=== PATIENT | female | born 1990 | race Caucasian/White ===

== ENCOUNTER 2019-03-02 19:51 | Emergency (ER) | payer OTHER, BC ==
--- NOTE | 2019-03-02 20:51 | RADIOLOGY REPORT (SQ) ---
CT BRAIN AND FACIAL BONES EXAM DATE: 03/02/2019 7:57 PM [employer]MER HISTORY: Trauma. COMPARISON: None. TECHNIQUE: CT scan of the brain and facial bones without IV contrast. This exam was performed according to our departmental dose-optimization program, which includes automated exposure control, adjustment of the mA and/or kV according to patient size and/or use of iterative reconstruction technique. FINDINGS: BRAIN: The ventricles, cisterns, and sulci are age-appropriate. No evidence of acute infarction, intracranial hemorrhage, extra-axial fluid collection, or midline shift. No depressed skull fracture. FACIAL BONES: No acute facial bone fracture is seen. No air-fluid levels are seen in the paranasal sinuses. The mastoid air cells are clear. No retrobulbar mass or hematoma is identified. IMPRESSION: 1. No acute intracranial hemorrhage. 2. No acute facial bone fracture.
--- NOTE | 2019-03-02 20:51 | RADIOLOGY REPORT (SQ) ---
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 COMPARISON: None. TECHNIQUE: CT scan of the brain and facial bones without IV contrast. This exam was performed according to our departmental dose-optimization program, which includes automated exposure control, adjustment of the mA and/or kV according to patient size and/or use of iterative reconstruction technique. FINDINGS: BRAIN: The ventricles, cisterns, and sulci are age-appropriate. No evidence of acute infarction, intracranial hemorrhage, extra-axial fluid collection, or midline shift. No depressed skull fracture. FACIAL BONES: No acute facial bone fracture is seen. No air-fluid levels are seen in the paranasal sinuses. The mastoid air cells are clear. No retrobulbar mass or hematoma is identified. IMPRESSION: 1. No acute intracranial hemorrhage. 2. No acute facial bone fracture.
[2019-03-02] MEDS ORDERED: TETRACAINE HCL 0.5% OPH SOLN 4 ML OD ONE (20:56)
[2019-03-02] MEDS ORDERED: IBUPROFEN 400 MG TABLET PO ONE (20:56)
[2019-03-02] MEDS ORDERED: DIPH/PERTUSS(ACELL)/TETANUS VAC/PF 0.5 ML SYR (>=10YO) IM ONE (20:56)
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
[2019-03-02] MEDS ORDERED: TETRACAINE HCL 0.5% OPH SOLN 4 ML ONE (23:51)
[2019-03-03] MEDS ORDERED: ERYTHROMYCIN 0.5% OPH OINT 1 GM UNIT DOSE OD ONE (00:44)
--- NOTE | 2019-03-03 01:02 | ER Document Report ---
ED Eye Complaint - General Chief Complaint: Eye Problem Stated Complaint: EYE/FACE INJURY Time Seen by Provider: 03/02/19 20:52 Primary Care Provider: SABINE MENARD NP [NURSE PRACTITIONER] - Follow up as needed Mode of Arrival: Wheelchair Information source: Patient Notes: Ms. Mckeon is 28 yo f w/ no significant medical history presenting to the ED for right eye pain. Patient states that she was ambulating when she accidentally struck her face and eye on a 2 x 4 piece of wood. She denies any LOC, vomiting or dizziness. She initially was able to see just fine however later endorse some mild blurry vision. Upon my evaluation, nursing staff had already performed visual acuity testing and it was 20/20. Patient has normal R OM of bilateral eyes. She was given a tetanus IM injection at triage as she was unsure when her last immunization was. There is a superficial laceration/abrasion no swelling underneath the right eye. She does endorse a foreign body sensation. Patient states that her vision has since improved and returned back to normal. - Related Data Allergies/Adverse Reactions: No Known Allergies Allergy (Unverified 07/01/10 00:02) Past Medical History - General Information source: Patient - Social History Smoking Status: Never Smoker Chew tobacco use (# tins/day): No Frequency of alcohol use: Occasional Drug Abuse: None Family History: Reviewed & Not Pertinent Patient has suicidal ideation: No Patient has homicidal ideation: No Skin Medical History: Denies Hx MRSA Review of Systems - Review of Systems Constitutional: See HPI EENT: See HPI Cardiovascular: No symptoms reported Respiratory: No symptoms reported Gastrointestinal: No symptoms reported Genitourinary: No symptoms reported Female Genitourinary: No symptoms reported Musculoskeletal: No symptoms reported Skin: No symptoms reported Hematologic/Lymphatic: No symptoms reported Neurological/Psychological: No symptoms reported Physical Exam - Vital signs Vitals: Temp Pulse Resp BP Pulse Ox 99.0 F 79 18 112/71 100 03/02/19 20:16 03/02/19 20:16 03/02/19 20:16 03/02/19 20:16 03/02/19 20:16 Interpretation: Normal - General General appearance: Appears well, Alert - HEENT Head: Normocephalic, Atraumatic Eyes: Periorbital ecchymosis, Other - Infraorbital swelling. 2 cm linear superficial abrasion/laceration which is well-approximated, not any gaping. Normal EOM. PERRL bilaterally. 2mm corneal abrasion to inferomedial conjunctiva Pupils: PERRL Visual acuity- Right eye: 20/20 Visual acuity- Left eye: 20/20 Visual acuity- Both eyes: 20/20 Corrective lenses worn: No - Respiratory Respiratory status: No respiratory distress Chest status: Nontender Breath sounds: Normal Chest palpation: Normal - Cardiovascular Rhythm: Regular Heart sounds: Normal auscultation Murmur: No - Abdominal Inspection: Normal Distension: No distension Bowel sounds: Normal Tenderness: Nontender Organomegaly: No organomegaly - Back Back: Normal, Nontender - Extremities General upper extremity: Normal inspection, Nontender, Normal color, Normal ROM, Normal temperature General lower extremity: Normal inspection, Nontender, Normal color, Normal ROM, Normal temperature, Normal weight bearing. No: Lily's sign - Neurological Neuro grossly intact: Yes Cognition: Normal Orientation: AAOx4 Willie Coma Scale Eye Opening: Spontaneous Willie Coma Scale Verbal: Oriented [place] Coma Scale Motor: Obeys Commands Willie Coma Scale Total: 15 Speech: Normal Motor strength normal: LUE, RUE, LLE, RLE Sensory: Normal - Psychological Associated symptoms: Normal affect, Normal mood - Skin Skin Temperature: Warm Skin Moisture: Dry Skin Color: Normal Course - Re-evaluation Re-evalutation: Patient is generally well-appearing and nontoxic. Vitals within normal limits. Differential diagnosis includes corneal abrasion, foreign body, globe rupture (less likely), facial fracture (less likely) 03/03/19 01:08 Full eye examination at performed. Patient has normal extraocular motions, and pupils are both equal reactive to light bilaterally. Small corneal abrasion noted under fluorescein staining and Gupta lamp. Patient will be ordered for erythromycin ointment. Will DC with the same. CT from triage of the head and face do not show any acute fractures or ICH. Patient's tetanus was updated. Patient given return precautions. - Vital Signs Vital signs: Temp Pulse Resp BP Pulse Ox 99.0 F 79 18 112/71 100 03/02/19 20:16 03/02/19 20:16 03/02/19 20:16 03/02/19 20:16 03/02/19 20:16 Discharge - Discharge Clinical Impression: Cornea abrasion, Periorbital ecchymosis, Eye trauma Condition: Good Disposition: HOME, SELF-CARE Instructions: Antibiotic Therapy ([facility]), Corneal Abrasion ([facility]) Prescriptions: Erythromycin Base [Erythromycin Oph 1 Gm Oint Ud] 1 applic OD TID 5 Days #1 tube Referrals: SABINE MENARD, [employer]UP[employer] PHP DEVELOPER [NURSE PRACTITIONER] - Follow up as needed
[2019-03-03 01:33] VITALS: BP 111/76
== END 2019-03-03 01:32 | disposition home or self-care (01) ==
LOC: ER 19:51
DX: S05.01XA Injury of conjunctiva and corneal abrasion without foreign body, right eye, initial encounter (principal); S05.91XA Unspecified injury of right eye and orbit, initial encounter; H57.11 Ocular pain, right eye; W22.8XXA Striking against or struck by other objects, initial encounter
CPT/HCPCS: 99283; 90471; 70450; 70486; 90715; J3490 ×2